=== PATIENT | male | born 1995 | race Caucasian/White ===

== ENCOUNTER 2016-12-28 10:43 | Emergency (ER) | payer OTHER ==
[2016-12-28 10:58] VITALS: BP 128/72; PULSE 54; RESP 17; TEMP 97.9; O2SAT 96
[2016-12-28] MEDS ORDERED: ACETAMINOPHEN 325 MG TAB PO ONE (11:57)
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
== END 2016-12-28 13:01 | disposition home or self-care (01) ==
DX: S29.9XXA Unspecified injury of thorax, initial encounter (principal); S50.02XA Contusion of left elbow, initial encounter; S83.422A Sprain of lateral collateral ligament of left knee, initial encounter; S09.90XA Unspecified injury of head, initial encounter; V49.50XA Passenger injured in collision with unspecified motor vehicles in traffic accident, initial encounter; Y92.410 Unspecified street and highway as the place of occurrence of the external cause; Y93.89 Activity, other specified